=== PATIENT | male | born 1965 | race Caucasian/White ===

== ENCOUNTER 2018-01-19 08:00 | Outpatient (RCR) | payer OTHER | END 2018-01-22 10:13 | disposition home or self-care (01) | LOC: MKS.ESL.PT 08:00 | DX: S32.491D Other specified fracture of right acetabulum, subsequent encounter for fracture with routine healing (principal); W17.89XD Other fall from one level to another, subsequent encounter; Y92.812 Truck as the place of occurrence of the external cause; Y99.0 Civilian activity done for income or pay ==

== ENCOUNTER 2020-05-09 14:59 | Emergency (ER) | payer BC ==
[~2020-05-09] VITALS: Ht 182.9 cm; Wt 125.0 kg
[2020-05-09 15:07] VITALS: TEMP 98
[2020-05-09 16:00] LABS: BASO # 0.1 (0.0-0.2); BASO % 1.1 % (0.0-2.0); EOS # 0.1 (0.0-0.7); EOS % 1.8 % (0-4.0); GRAN # 2.9 (1.4-6.5); GRAN % 40.1 % (42.2-75.2); HEMATOCRIT 50.1 % (42.0-52.0); HEMOGLOBIN 16.8 g/dl (13.5-18.0); LYMPH # 3.6 (1.2-3.4); LYMPH % 49.9 % (20.0-51.0); MEAN CELL VOLUME 84 fl (80.0-100.0); MEAN CORPUSCULAR HEMOGLOBIN 28 pg (27.0-31.0); MEAN CORPUSCULAR HGB CONC 34 g/dl (33.0-37.0); MONO # 0.5 (0.1-0.6); PLATELET COUNT 265 K/mm3 (130-400); RED BLOOD COUNT 5.97 M/mm3 (4.20-5.60); REDCELL DISTRIBUTION WIDTH-CV 13.4 % (11.5-14.5)
[2020-05-09 16:06] LABS: ALANINE AMINOTRANSFERASE 63 U/L (4-49); ALBUMIN 4.7 gm/dL (3.5-5.0); ALKALINE PHOSPHATASE 105 U/L (50-136); ANION GAP 10 mmol/L (7-16); AST,SGOT 40 U/L (15-37); BILIRUBIN,TOTAL 0.9 mg/dL (0.0-1.0); BLOOD UREA NITROGEN 15 mg/dL (9-20); CALCIUM 9.3 mg/dL (8.4-10.2); CARBON DIOXIDE 29 mmol/L (22-30); CHLORIDE 99 mmol/L (98-107); CREATININE, serum 1.23 (0.66-1.25); GLUCOSE 123 mg/dL (74-106); POTASSIUM 3.2 mmol/L (3.4-5.0); SODIUM 139 mmol/L (137-145); TOTAL PROTEIN 8.4 gm/dL (6.4-8.2)
[2020-05-09 16:18] LABS: TROPONIN-I < 0.012 ng/mL (0.000-0.035)
[2020-05-09] MEDS ORDERED: ZESTRIL 20MG TA20 MG PO (18:17)
[2020-05-09 19:32] VITALS: BP 188/129; PULSE 79
== END 2020-05-09 19:32 | disposition home or self-care (01) ==
LOC: COL.ER 14:59
PROVIDERS: Physician Assistant
DX: I10 Essential (primary) hypertension (principal); R07.89 Other chest pain; E66.9 Obesity, unspecified; F17.200 Nicotine dependence, unspecified, uncomplicated